=== PATIENT | female | born 1970 ===

== ENCOUNTER 2019-12-01 17:57 | Emergency (ER) | payer BC ==
--- NOTE | 2019-12-01 20:22 | ER ---
REASON FOR ADMISSION: Head trauma. HISTORY: This 49-year-old woman was working around her tractor at home feeding horses. Her was out fishing. She slipped on the ice and struck the back of her head. She does not feel that she lost consciousness, but she states that she felt like she could not move her arms or legs for a few seconds and felt tingly. She denies any visual symptoms. She denies any nausea, vomiting, weakness, or numbness. She has pain on the occipital area of her head, but no actual headache. She was brought in by her to the emergency department. PAST MEDICAL HISTORY: Significant for hypertension. ALLERGIES: TO PENICILLIN AND ADHESIVES. REVIEW OF SYSTEMS: Pertinent positives and negatives as listed in the HPI. PHYSICAL EXAMINATION: GENERAL: Reveals a pleasant woman in no acute distress. HEENT: She does have some tenderness and soft tissue swelling on her occipital area consistent with a small subcutaneous hematoma. No bony crepitus is felt. Both TMs are normal with no hemotympanum. Pupils are equally round and reactive to light. NECK: Supple and nontender. NEUROLOGIC: Cranial nerves 2 through 12 are intact. Deep tendon reflexes are symmetrical bilaterally in both lower extremities. Muscle strength, bulk and tone are normal and symmetrical. Sensory examination is normal to crude touch. FURTHER EMERGENCY ROOM COURSE: A CT scan was obtained because of the symptoms she experienced after she fell, question as to whether or not she had an altered sensorium. CT scan showed a small subcutaneous hematoma, but no other acute findings intracranially were noted. IMPRESSION: Mild traumatic brain injury. PLAN: She was instructed regarding precautions to take for the next 48 hours. Instruction sheet was given to her. She should not work today or tomorrow, and if she is feeling well on Tuesday, she can resume her normal activities. All questions were answered. They understand and agree with this plan. MONA/BLAS /[id number]
--- NOTE | 2019-12-02 08:43 | CT ---
DATE OF SERVICE: 12/01/19 CLINICAL DATA: hit head UNENHANCED BRAIN CT: Multi slice acquisition through the brain without IV contrast was performed. No priors. No masses or mass effect. No intracranial hemorrhage. No evidence of acute or subacute infarct. No osseous abnormalities. There is soft tissue swelling of the scalp posteriorly. IMPRESSION: No acute intracranial abnormalities. [id number] [facility]
== END 2019-12-01 18:55 | disposition home or self-care (01) ==
LOC: LB.ED 17:57
DX: S06.9X0A Unspecified intracranial injury without loss of consciousness, initial encounter (principal); S00.03XA Contusion of scalp, initial encounter; W00.0XXA Fall on same level due to ice and snow, initial encounter
CPT/HCPCS: 70450; 99283; 99283-25

== ENCOUNTER 2021-03-03 13:30 | Emergency (ER) | payer BC ==
[2021-03-03] MEDS ORDERED: Ketorolac 60 MG/2 ML SDV IM ONE (14:26)
--- NOTE | 2021-03-03 14:40 | EDM.PDOC ---
ED HPI GENERAL MEDICAL PROBLEM - General Chief Complaint: Lower Extremity Injury/Pain Stated Complaint: INJURY LEFT FOOT Time Seen by Provider: 03/03/21 14:15 Source of Information: Reports: Patient History Limitations: Reports: No Limitations - History of Present Illness INITIAL COMMENTS - FREE TEXT/NARRATIVE: in the ER due to left foot pain after a mule stepped on it. pain 7 out of 10 occurred 30 min [employer] Onset: Today Duration: Minutes: (30) Location: Reports: Lower Extremity, Left Quality: Reports: Throbbing Severity: Moderate Improves with: Reports: Rest Worsens with: Reports: Movement Left Foot Pain Score (Numeric/FACES): 3 - Related Data Allergies Allergy/AdvReac Type Severity Reaction Status Date / Time adhesive Allergy Rash Verified 03/03/21 13:42 Penicillins Allergy Hives Verified 03/03/21 13:42 Home Meds: Home Meds Losartan [Cozaar] 25 mg PO DAILY 12/01/19 [History] Ketorolac [Toradol] 10 mg PO TID PRN #12 tab 03/03/21 [Rx] Past Medical History HEENT History: Reports: Hard of 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 - Past Surgical History Cardiovascular Surgical History: Reports: None Social & Family History - Family History Family Medical History: No Pertinent Family History - Tobacco Use Tobacco Use Status *Q: Former Tobacco User Used Tobacco, but Quit: Yes Month/Year Tobacco Last Used: 06/2016 Second Hand Smoke Exposure: No - Caffeine Use Caffeine Use: Reports: Coffee, Soda - Recreational Drug Use Recreational Drug Use: No Review of Systems - Review of Systems Review Of Systems: See Below Constitutional: Reports: No Symptoms Eyes: Reports: No Symptoms Ears: Reports: No Symptoms Nose: Reports: No Symptoms Respiratory: Reports: No Symptoms Cardiovascular: Reports: No Symptoms GI/Abdominal: Reports: No Symptoms ED EXAM, GENERAL - Physical Exam Exam: See Below Exam Limited By: No Limitations General Appearance: Alert, WD/WN, No Apparent Distress Eye Exam: Bilateral Eye: EOMI Respiratory/Chest: No Respiratory Distress Cardiovascular: Regular Rate, Rhythm Extremities: Other (left foot bruises and swelling - no deformity ) Neurological: Alert, Oriented Course - Vital Signs Last Recorded V/S: Last Vital Signs Temp 37.0 C 03/03/21 13:45 Pulse 67 03/03/21 13:45 Resp 16 03/03/21 13:45 BP 129/68 03/03/21 14:18 Pulse Ox 100 03/03/21 13:45 - Orders/Labs/Meds Orders: Active Orders 24 hr Category Date Time Status Foot Comp Min 3V Lt [CR] Stat Exams 03/03/21 13:51 Taken EULALIA Bandage [Elastic Wrap] [OM.PC] Routine Oth 03/03/21 14:33 Ordered Meds: Medications Discontinued Medications Generic Name Dose Route Start Last Admin Trade Name Freq PRN Reason Stop Dose Admin Ketorolac Tromethamine 60 mg 03/03/21 14:26 Ketorolac 60 Mg/2 Ml Sdv IM 03/03/21 14:27 ONETIME ONE - Re-Assessments/Exams Free Text/Narrative Re-Assessment/Exam: 03/03/21 14:41 xrays foot - no e/o fracture. acewrap was applied a prescription of pain meds was provided Departure - Departure Time of Disposition: 14:42 Disposition: Home, Self-Care 01 Condition: Good Clinical Impression: Contusion of foot, left Qualifiers: Encounter type: initial encounter Qualified Code(s): S90.32XA - Contusion of left foot, initial encounter - Discharge Information *PRESCRIPTION DRUG MONITORING PROGRAM REVIEWED*: Not Applicable *COPY OF PRESCRIPTION DRUG MONITORING REPORT IN PATIENT [place]: Not Applicable Prescriptions: Ketorolac [Toradol] 10 mg PO TID PRN #12 tab PRN Reason: Pain (Moderate 4-6) Instructions: Foot Contusion, [id number], Crush Injury of the Foot, [id number] Referrals: PCP,None [Primary Care Provider] - Forms: ED Department Discharge Additional Instructions: - ice the affected area - take pain medications as prescribed - recommend off weight on the affected foot until it heals better - follow up with your PCP as needed Sepsis Event Note (ED) - Evaluation Sepsis Screening Result: No Definite Risk - Focused Exam Vital Signs: Vital Signs Temp Pulse Resp BP Pulse Ox 03/03/21 14:18 129/68 03/03/21 13:45 37.0 C 67 16 140/101 H 100 - Problem List & Annotations (1) Contusion of foot, left SNOMED Code(s): 94952049, [id number] Code(s): S90.32XA - CONTUSION OF LEFT FOOT, INITIAL ENCOUNTER Status: Acute Priority: Low Current Visit: Yes Qualifiers: Encounter type: initial encounter Qualified Code(s): S90.32XA - Contusion of left foot, initial encounter - Problem List Review Problem List Initiated/Reviewed/Updated: Yes - My Orders Last 24 Hours: My Active Orders 03/03/21 13:51 Foot Comp Min 3V Lt [CR] Stat 03/03/21 14:33 EULALIA Bandage [Elastic Wrap] [OM.PC] Routine - Assessment/Plan Last 24 Hours: My Active Orders 03/03/21 13:51 Foot Comp Min 3V Lt [CR] Stat 03/03/21 14:33 EULALIA Bandage [Elastic Wrap] [OM.PC] Routine Plan: - ice the affected area - take pain medications as prescribed - recommend off weight on the affected foot until it heals better - follow up with your PCP as needed
--- NOTE | 2021-03-03 17:58 | CR ---
Date of Service: 03/03/21 Clinical Data: Pain. LEFT FOOT: There is soft tissue swelling noted overlying the dorsum of the foot. No acute fracture or dislocation. There are minimal osteoarthritic changes involving multiple joints. There is a plantar calcaneal spur. No lytic or blastic bone lesions. [id number] [facility]
== END 2021-03-03 14:55 | disposition home or self-care (01) ==
LOC: LB.ED 13:30
DX: S90.32XA Contusion of left foot, initial encounter (principal); Z87.891 Personal history of nicotine dependence; Z88.0 Allergy status to penicillin; Z91.048 Other nonmedicinal substance allergy status; Z79.899 Other long term (current) drug therapy; W22.8XXA Striking against or struck by other objects, initial encounter
CPT/HCPCS: 73630-LT; 99283